=== PATIENT | female | born 1970 | race Hispanic/Latino ===

== ENCOUNTER 2025-01-25 07:25 | Emergency (ER) | payer BC, OTHER ==
[~2025-01-25] VITALS: Ht 149.9 cm; Wt 70.3 kg
[2025-01-25 07:30] VITALS: BP 159/80; PULSE 82; RESP 20; TEMP 97.7; O2SAT 98
--- NOTE | 2025-01-25 07:30 | NUR ---
PATIENT PLACED IN HALLWAY B.
--- NOTE | 2025-01-25 07:45 | ERN ---
General Chief Complaint: Low Back Pain/Injury Stated Complaint: BACK PAIN Time Seen by MD: 07:38 Source: patient, family History of Present Illness Initial Comments Patient is a 54-year-old female coming in complaining of back pain. 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 No other symptoms. Allergies: Coded Allergies: No Known Drug Allergies (Unverified Allergy, Unknown, 01/25/25) Past Medical History Past Medical History: Diabetes-Type II Past Surgical History: Hysterectomy, Cholecystectomy, ROS Dictation CONSTITUTIONAL: No chills, no fever, no weakness, no diaphoresis, no malaise. HEAD/FACE: No signs of trauma. EENT: No eye pain, no blurred vision, no tearing, no double vision, no ear pain, no ear discharge, no nose pain, no nasal congestion, no throat pain, no throat swelling, no mouth pain. RESPIRATORY: No cough, no orthopnea, no SOB, no stridor, no wheezing. CARDIOVASCULAR: No chest pain, no edema, no palpitations, no syncope. GASTROINTESTINAL/ABDOMINAL: No abdominal pain, no constipation, no diarrhea, no nausea, no vomiting. GENITOURINARY: No abnormal discharge, no dysuria, no frequent urination, no hematuria. No complaints of pain in the genitals. MUSCULOSKELETAL: No back pain, no gout, no joint pain, no joint swelling, muscle pain, no muscle stiffness, no neck pain. INTEGUMENTARY: No change in color, no change in hair/nails, no dryness, no lesion, no lumps, no rash. NEUROLOGICAL/PSYCH: No anxiety, not depressed, no emotional problem, no headache, no numbness, no pre-existing deficit, no history of seizures, no tremors, no weakness. HEMATOLOGIC/LYMPHATIC: Not anemic, no history of blood clots, no apparent blee ding, no bruising, glands not swollen. All Systems Negative, Except as Noted. Physical Exam Physical Exam Dictation VITAL SIGNS: Reviewed. GENERAL APPEARANCE: Alert, oriented x3, no acute distress, obese. HEAD AND FACE: Non-traumatic. EYES: PERRL, pink conjunctivas, eyelid no trauma, anterior chamber clear. EARS: Pinnas intact and no signs of trauma or erythema. Ear canals clear and no discharge. TMs no erythema. NOSE: No discharge, no bleeding. OROPHARYNX: Mouth normal, teeth no caries, tongue pink. Pharynx clear, no erythema. Tonsils no exudates, no abscesses noted. Mucous membrane moist. NECK: Supple, non-tender, no thyromegaly, no masses, no JVD, no bruits. BREAST: Deferred. CHEST: No tenderness, no crepitus, no paradoxical movement, no retractions. LUNGS: Clear, well-ventilated, symmetric, no rales, no wheezing, no rhonchi, no stridor, good breath sounds bilaterally. HEART: Regular rate, regular rhythm, no murmur, no gallops. VASCULAR: No peripheral edema. ABDOMEN: Soft, positive bowel sounds, nondistended, no guarding, nontender, no rebound, no masses no hepatomegaly, no splenomegaly, no Camarena's sign, no hernias. RECTAL: Deferred. GENITAL: Deferred. NEUROLOGICAL: Normal speech, gross motor function intact, gross sensory function intact. 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 EXTREMITIES: Nontender, full range of motion. SKIN: Color pink, dry, no turgor, no rash, no lacerations, no abrasions, no contusions. LYMPHATICS: Deferred. Results Laboratory and Microbiology Labs Reviewed?: Yes EKG/XRAY/US/CT/MRI X-RAY Comment lumbar xray- chronic changes MDM MDM: Differential diagnosis:lumbar strain, acute on chronic back pain, constipation Rationale: Tests considered and ordered secondary to shared decision making include: Previous outside records reviewed: Old ER visits. Risk of complication and/or morbidity or mortality of patient management: None Medications-Per medication reconciliation Need for hospitalization: Patient does not meet criteria for hospitalization. Need for emergency major/minor surgery: No Patient is a 54-year-old female coming in with back pain. Per patient she bent over a couple of days ago started having back pain. X-ray did not disclose any acute findings several chronic changes are present. Patient has back pain which improved patient will be discharged in stable condition with a diagnosis of chronic back pain. Medication will be provided for symptomatic relief. I will be referring patient to an redevelopment specialist and I also advised her appropriate follow up with PCP. ED Course Orders Procedure Category Date Status Time Lumbar Spine 2-3vws RAD 01/25/25 Taken 07:41 Orphenadrine Citrate PHA 01/25/25 Complete (Norflex) 08:00 Ketorolac PHA 01/25/25 Complete Tromethamine 30mg/Ml 08:00 Current Medications Medications (Trade) Dose Ordered Sig/Natalya Route PRN Reason Start Time Stop Time Status Last Admin Dose Admin Ketorolac Tromethamine (toRADol) 30 mg ONCE ONCE IM 01/25/25 08:00 01/25/25 08:01 DC 01/25/25 07:55 Orphenadrine Citrate (Norflex) 60 mg ONCE ONCE IM 01/25/25 08:00 01/25/25 08:01 DC 01/25/25 07:53 Vital Signs Date Time Temp Pulse Resp B/P (MAP) Pulse Ox O2 Delivery O2 Flow Rate FiO2 01/25/25 07:30 97.7 82 20 159/80 98 Room Air* 0 21 01/25/25 07:26 97.7 82 20 159/80 98 Room Air DX & DISP Disposition: Discharge Departure Impression: Primary Impression: Acute on chronic back pain Additional Impressions: Osteoarthritis of back, Constipation Condition: Stable Scripts Naproxen (Naproxen) 375 Mg Tablet.dr 375 MG PO BID for 7 Days, #14 TAB Prov: MARTHA CALHOUN MD 01/25/25 Gabapentin (Gabapentin) 100 Mg Capsule 1 CAP PO BID for 7 Days, #14 CAP 0 Refills Prov: MARTHA CALHOUN MD 01/25/25 Additional Instructions: FOLLOW-UP WITH PRIMARY CARE PROVIDER IN 1 TO 2 DAYS. TAKE MEDICATIONS DIRECTED HERE IN THE EMERGENCY ROOM. OKAY TO CONTINUE HOME MEDICATIONS UNLESS OTHERWISE DISCUSSED DURING YOUR VISIT IN THE EMERGENCY ROOM TODAY. RETURN TO YOUR NEAREST EMERGENCY ROOM IF SYMPTOMS WORSEN OR IF THERE IS NO IMPROVEMENT. CALL 911 IF YOU NEED IMMEDIATE ASSISTANCE. TAKE TYLENOL [id number]-[id number] NEEDED AND IF NO CONTRAINDICATIONS ARE PRESENT. INCREASE ORAL HYDRATION. A WOUND CULTURE OR URINE CULTURE WAS ORDERED HERE IN THE EMERGENCY ROOM DEPARTMENT PLEASE FOLLOW-UP WITH PRIMARY CARE PROVIDER AND ADVISE THEM TO GET REPORTS FROM OUR FACILITY. IF YOU HAD ANY DONNA WRAP/SPLINTS THAT WERE APPLIED HERE, PLEASE DO NOT REMOVE THEM UNTIL YOU SEE YOUR PRIMARY CARE OR SPECIALTY. Referrals: Referrals: DEZ CHILEL MD, LUIS A MD Time of Disposition: 08:34 MARTHA CALHOUN MD Jan 25, 2025 07:45
[2025-01-25] MEDS: ORPHENADRINE 60MG/2ML IM ONE (07:53)
--- NOTE | 2025-01-25 09:08 | HMCIMG ---
EXAM: CR Lumbar Spine, 3 Views. CLINICAL HISTORY: back pain COMPARISON: None. FINDINGS: There is normal alignment without fracture. Vertebral body heights are preserved. Degenerative osteophytes in the lumbar vertebrae with bridging osteophytes at T12-L1 and L1-L2 levels. Disc spaces and posterior elements are normal. No erosive or destructive changes. A few small radiodensities (likely cholecystectomy clips) noted in the upper abdomen on the right side. Please correlate with the history of cholecystectomy, if any. IMPRESSION: No acute fracture or subluxation. Lumbar spondylosis. /Sofie
== END 2025-01-25 08:52 | disposition home or self-care (01) ==
LOC: EDH 07:25
DX: M47.816 Spondylosis without myelopathy or radiculopathy, lumbar region (principal); G89.29 Other chronic pain; M54.50 Low back pain, unspecified; K59.00 Constipation, unspecified; E11.9 Type 2 diabetes mellitus without complications; Z90.710 Acquired absence of both cervix and uterus; Z90.49 Acquired absence of other specified parts of digestive tract; Z98.890 Other specified postprocedural states
CPT/HCPCS: 99284; 72100; 96372 ×2; J1885; J2360